=== PATIENT | male | born 1950 | race Caucasian/White ===

== ENCOUNTER 2016-06-24 13:48 | Emergency (ER) | payer MEDICARE ==
[~2016-06-24] VITALS: Ht 170.2 cm; Wt 116.1 kg
[~2016-06-24 13:48] MED LIST: ALEVE PO; AMLO10TA2 PO; DIURETIC PO; ENOX120S5 SQ; ESOM40CA PO; LISI40TA PO; LOSA1TAB17 PO; NAPR500T3 PO; ROSU10TA PO; SIMV20TA3 PO; WARF5TAB PO; nature thyroid PO
[2016-06-24 13:50] VITALS: BP 127/80
[2016-06-24] MEDS ORDERED: DIAZEPAM 5 MG TABLET ONE (14:50)
[2016-06-24] MEDS ORDERED: ROSU20TA PO (14:57)
[2016-06-24] MEDS ORDERED: CETI10CA PO (14:57)
[2016-06-24] MEDS ORDERED: RIVA20TA PO (14:57)
[2016-06-24] MEDS ORDERED: DIAZEPAM 5 MG TABLET PO ONE (15:00)
== END 2016-06-24 16:27 | disposition home or self-care (01) ==
LOC: ED 15:51
DX: S39.012A Strain of muscle, fascia and tendon of lower back, initial encounter (principal); I10 Essential (primary) hypertension; Z90.89 Acquired absence of other organs; X58.XXXA Exposure to other specified factors, initial encounter; Y93.89 Activity, other specified; Y99.8 Other external cause status; Y92.89 Other specified places as the place of occurrence of the external cause
CPT/HCPCS: 81003; 93005

== ENCOUNTER 2017-05-06 17:15 | Inpatient (IN) | payer MEDICARE ==
[~2017-05-06] VITALS: Ht 170.2 cm; Wt 114.0 kg
[~2017-05-06 17:15] MED LIST changes: +CETI10CA PO; -LOSA1TAB17 PO; +LOSA1TAB22 PO; -NAPR500T3 PO; +NAPR500T4 PO; +RIVA20TA PO; +ROSU20TA PO
[2017-05-06] MEDS ORDERED: SODIUM CHLORIDE FLUSH 10ML SYR IVF ONE (20:00)
[2017-05-06 20:23] LABS: BASOPHILS # (AUTO) 0.04 x10^3/uL (0-0.1); BASOPHILS % (AUTO) 1 % (0-1); EOSINOPHILS # (AUTO) 0.11 x10^3/uL (0-0.4); EOSINOPHILS % (AUTO) 2 % (1-7); LYMPHOCYTES # (AUTO) 1.07 x10^3/uL (1-3.4); LYMPHOCYTES % (AUTO) 19 % (22-44); MD NO; MEAN CORPUSCULAR HEMOGLOBIN 32.1 pg (27.5-34.5); MEAN CORPUSCULAR HGB CONC 33.8 g/dL (33.2-36.2); MEAN PLATELET VOLUME 7.4 fL (7.4-10.4); MONOCYTES % (AUTO) 7 % (2-9); NEUTROPHILS # (AUTO) 3.96 x10^3/uL (1.8-6.8); NEUTROPHILS % (AUTO) 71 % (42-75); PLATELET COUNT 223 x10^3/uL (130-400); RED BLOOD COUNT 4.39 x10^6/uL (4.38-5.82); RED CELL DISTRIBUTION WIDTH 15.1 % (9.4-14.8)
[2017-05-06 20:31] LABS: INTERNATIONAL NORMALIZED RATIO 0.96 (0.93-1.1); PROTHROMBIN TIME 9.9 Seconds (9.6-11.5)
[2017-05-06 20:33] LABS: ALBUMIN 3.4 g/dL (3.4-5.0); ANION GAP 12 mmol/L (5-15); CALCIUM 8.3 mg/dL (8.5-10.1); CHLORIDE 105 mmol/L (98-107)
[2017-05-06] MEDS ORDERED: APIX2.5T PO (21:39)
[2017-05-07] MEDS ORDERED: D5%-0.45NACL+KCL 20MEQ 1,000 ML IV SCH (01:25)
[2017-05-07] MEDS ORDERED: LABETALOL 5MG/ML, 20ML IVPush PRN (01:30)
[2017-05-07] MEDS ORDERED: ONDANSETRON 2MG/ML, 2ML IVPush PRN (01:30)
[2017-05-07] MEDS ORDERED: ONDANSETRON ODT 4 MG PO PRN (01:30)
[2017-05-07 02:00] VITALS: BP 113/76
[2017-05-07] MEDS: ACETAMINOPHEN 325 MG TABLET PO PRN ×2 (02:37→08:40)
[2017-05-07 06:37] VITALS: BP 96/63
[2017-05-07 08:30] VITALS: BP 124/74
[2017-05-07] MEDS ORDERED: FAMOTIDINE 20 MG/2 ML IVPush SCH (09:00)
[2017-05-07] MEDS ORDERED: LOSARTAN 50MG TABLET PO SCH (09:00)
[2017-05-07] MEDS ORDERED: PANTOPROZOLE 40MG TABLET PO SCH (09:00)
[2017-05-07] MEDS ORDERED: HYDROCHLOROTHIAZIDE 25 MG TABLET PO SCH (09:00)
[2017-05-07] MEDS ORDERED: ATORVASTATIN 40 MG TABLET PO SCH (21:00)
== END 2017-05-07 12:03 | disposition home or self-care (01) | DRG 83 ==
LOC: ED 19:47 → EDIP 19:52 → ED 20:49 → 4WST 21:39 → DCLOUNGE 05-07 11:58
PROVIDERS: ADMIT Internal Medicine; ATTEND Internal Medicine
DX: S06.5X9A Traumatic subdural hemorrhage with loss of consciousness of unspecified duration, initial encounter (principal); D68.59 Other primary thrombophilia; E66.9 Obesity, unspecified; R60.0 Localized edema; S06.6X9A Traumatic subarachnoid hemorrhage with loss of consciousness of unspecified duration, initial encounter; E78.5 Hyperlipidemia, unspecified; F17.290 Nicotine dependence, other tobacco product, uncomplicated; I10 Essential (primary) hypertension; W18.39XA Other fall on same level, initial encounter; Z79.01 Long term (current) use of anticoagulants; Z86.718 Personal history of other venous thrombosis and embolism; Z86.711 Personal history of pulmonary embolism; Z68.39 Body mass index [BMI] 39.0-39.9, adult; Y93.01 Activity, walking, marching and hiking; Y92.89 Other specified places as the place of occurrence of the external cause; Y99.8 Other external cause status
CPT/HCPCS: 36415; 70450; 80048; 82040; 85025; 85610; 85730; 93005; 99285; J3480; S0028